=== PATIENT | female | born 1980 | race African-American/Black ===

== ENCOUNTER → 2016-09-03 | Outpatient (CLI) | payer OTHER ==
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
[2016-09-03 15:46] LABS: POC - CREATININE 1.01 mg/dL (0.44-1.03); POC - GFR >60.0 mL/min (>60)
== END | disposition home or self-care (01) ==
LOC: CMRI 14:52
PROVIDERS: Psychiatry & Neurology Neurology
DX: R51 Headache (principal)
CPT/HCPCS: 70553; 82565; A9577